=== PATIENT | male | born 1985 | race Asian ===

== ENCOUNTER 2020-10-14 19:50 | Emergency (ER) | payer OTHER ==
[2020-10-14] MEDS ORDERED: Lidocaine 1% 30 ML SDV INJECT ONE (20:09)
[2020-10-14] MEDS ORDERED: Bacitracin Oint 1 GM U/D Packet TOP ONE (20:09)
[2020-10-14] MEDS ORDERED: Diphtheria,Pertussis(Acell),Tetanus Vaccine 0.5 ML Syringe IM ONE (20:28)
--- NOTE | 2020-10-14 20:30 | EDM.PDOC ---
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 Time Seen by Provider: 10/14/20 20:00 Source of Information: Reports: Patient History Limitations: Reports: No Limitations - History of Present Illness INITIAL COMMENTS - FREE TEXT/NARRATIVE: This 35 yo male patient reports to the ED with his son due to a laceration to his forehead. The patient was loading his pickup when the topper door slammed down on his head. The patient denies any loss of consciousness. Onset: Today Duration: Minutes: Location: Reports: Head Quality: Reports: Ache, Dull Severity: Mild Improves with: Reports: None Worsens with: Reports: None Context: Reports: Activity Associated Symptoms: Reports: No Other Symptoms Forehead Pain Score (Numeric/FACES): 5 - Related Data Allergies Allergy/AdvReac Type Severity Reaction Status Date / Time No Known Allergies Allergy Verified 10/14/20 20:07 Home Meds: Home Meds . [No Known Home Meds] 10/14/20 [History] Past Medical History - Past Health History Medical/Surgical History: Denies Medical/Surgical History Social & Family History - Tobacco Use Tobacco Use Status *Q: Never Tobacco User - Caffeine Use Caffeine Use: Reports: Tea - Recreational Drug Use Recreational Drug Use: No ED ROS GENERAL - Review of Systems Review Of Systems: Comprehensive ROS is negative, except as noted in HPI. ED EXAM, SKIN/RASH Exam: See Below Exam Limited By: No Limitations General Appearance: Alert, WD/WN, No Apparent Distress Eye Exam: Bilateral Eye: EOMI, Normal Inspection, PERRL Ears: Normal External Exam, Normal Canal, Hearing Grossly Normal, Normal TMs Nose: Normal Inspection, Normal Mucosa, No Blood Throat/Mouth: Normal Inspection, Normal Lips, Normal Teeth, Normal Gums, Normal Oropharynx, Normal Voice, No Airway Compromise Head: Other (laceration to upper forehead with swelling to the area surrounding area) Neck: Normal Inspection, Supple, Non-Tender, Full Range of Motion Respiratory/Chest: No Respiratory Distress, Lungs Clear, Normal Breath Sounds, No Accessory Muscle Use, Chest Non-Tender Cardiovascular: Normal Peripheral Pulses, Regular Rate, Rhythm, No Edema, No Gallop, No JVD, No Murmur, No Rub (Male) Exam: Deferred Rectal (Males) Exam: Deferred Neurological: Alert, Oriented, CN II-XII Intact, Normal Cognition, Normal Gait, Normal Reflexes, No Motor/Sensory Deficits Psychiatric: Normal Affect, Normal Mood Skin: Warm, Dry, Normal Color, No Rash, Wound/Incision Location, Skin: Head Characteristics: Linear Associated features: No: Warmth, Tenderness, Swelling Lymphatic: No Adenopathy ED SKIN PROCEDURES - Laceration/Wound Repair Left Forehead Appearance: Subcutaneous Distal NVT: Neuro & Vascular Intact Anesthetic Type: Local Local Anesthesia - Lidocaine (Xylocaine): 2% Plain Local Anesthetic Volume: 3cc Skin Prep: Chlorhexidine (Hibiciens), Saline Exploration/Debridement/Repair: Wound Explored, No Foreign Material Found Closed with: Sutures Lac/Wound length In cm: 2.0 Suture Size: 5-0 # of Sutures: 7 Suture Type: Prolene, Interrupted, Simple Drain Placement: No Sterile Dressing Applied: Nurse Tetanus Status Addressed: Yes Complications: No Course - Vital Signs Last Recorded V/S: Last Vital Signs Temp 99.2 F 10/14/20 20:08 Pulse 111 H 10/14/20 20:08 Resp 18 10/14/20 20:08 BP 137/91 H 10/14/20 20:08 Pulse Ox 100 10/14/20 20:08 - Orders/Labs/Meds Orders: Active Orders 24 hr Category Date Time Status Vaccines to be Administered [RC] PER UNIT ROUTINE Care 10/14/20 20:28 Ordered Meds: Medications Discontinued Medications Generic Name Dose Route Start Last Admin Trade Name Freq PRN Reason Stop Dose Admin Bacitracin 1 dose 10/14/20 20:09 Bacitracin Oint 1 Gm U/D Packet TOP 10/14/20 20:10 ONETIME ONE Diphtheria/Tetanus/Acell Pertussis 0.5 ml 10/14/20 20:28 Diphtheria,Pertussis(Acell),Tetanus Vaccine 0.5 Ml Syringe IM 10/14/20 20:29 .ONCE ONE Lidocaine HCl 30 ml 10/14/20 20:09 Lidocaine 1% 30 Ml Sdv INJECT 10/14/20 20:10 ONETIME ONE Departure - Departure Time of Disposition: 20:28 Disposition: Home, Self-Care 01 Condition: Fair Clinical Impression: Laceration of forehead Qualifiers: Encounter type: initial encounter Qualified Code(s): S01.81XA - Laceration without foreign body of other part of head, initial encounter - Discharge Information *PRESCRIPTION DRUG MONITORING PROGRAM REVIEWED*: Not Applicable *COPY OF PRESCRIPTION DRUG MONITORING REPORT IN PATIENT MAYCO: Not Applicable Instructions: Laceration Care, Adult, [id number] Forms: ED Department Discharge Care Plan Goals: The patient was advised of the examination results during the visit. The laceration margins were well approximated during the visit. The patient should keep the area clean and dry over the next 24 hours. The patient should have the sutures removed in 10-14 days. If the patient has any additional symptoms or concerns, the patient should either return to the emergency department or follow-up with his primary care facility. Sepsis Event Note (ED) - Evaluation Sepsis Screening Result: No Definite Risk - Focused Exam Vital Signs: Vital Signs Temp Pulse Resp BP Pulse Ox 10/14/20 20:08 99.2 F 111 H 18 137/91 H 100 - My Orders Last 24 Hours: My Active Orders 10/14/20 20:28 Vaccines to be Administered [RC] PER UNIT ROUTINE - Assessment/Plan Last 24 Hours: My Active Orders 10/14/20 20:28 Vaccines to be Administered [RC] PER UNIT ROUTINE
== END 2020-10-14 20:46 | disposition home or self-care (01) ==
LOC: DL.ED 19:50
DX: S01.81XA Laceration without foreign body of other part of head, initial encounter (principal); Z23 Encounter for immunization; W22.8XXA Striking against or struck by other objects, initial encounter
CPT/HCPCS: 12011; 90471; 90715; 99282-25; 99283